=== PATIENT | female | born 1995 | race African-American/Black ===

== ENCOUNTER 2018-10-26 19:33 | Observation (INO) | payer MEDICAID ==
[~2018-10-26] VITALS: Ht 165.1 cm; Wt 75.3 kg
[2018-10-26] MEDS ORDERED: FOLI0.4T2 MT (20:22)
[2018-10-26] MEDS ORDERED: PREN1TAB78 MT (20:22)
[2018-10-26] MEDS ORDERED: ONDANSETRON HCL 4MG/2ML INJ IV NR (20:30)
[2018-10-26] MEDS ORDERED: ACETAMINOPHEN 325MG TABLET PO NR (20:30)
[2018-10-26] MEDS: LACTATED RINGERS 1,000 ML IV SCH ×2 (20:54→23:52)
[2018-10-26 21:21] LABS: BASOPHILS % 0.1 % (0.0-2.0); EOSINOPHILS % 0.6 % (0.0-5.0); HEMATOCRIT. 32.6 % (36.0-48.0); HEMOGLOBIN. 10.9 g/dL (12.0-16.0); MEAN CORPUSCULAR HEMOGLOBIN 28.9 pg (28.0-32.0); MEAN CORPUSCULAR VOLUME 86.4 fL (81.0-99.0); MEAN PLATELET VOLUME 9.1 fl (7.4-10.4); NEUTROPHILS % 74.3 % (40.0-76.0); PLATELET 208 x1000/uL (130-400); RED BLOOD CELL COUNT 3.77 mill/uL (4.2-5.4); RED CELL DISTRIBUTION WIDTH 15.1 % (11.6-14.6)
[2018-10-26 21:21] LABS: CLARITY URINE CLEAR (CLEAR); COLOR URINE YELLOW (YELLOW); KETONES URINE NEGATIVE (NEGATIVE); LEUKOCYTE ESTERASE URINE 1+ (NEGATIVE); NITRITE URINE NEGATIVE (NEGATIVE); OCCULT BLOOD URINE NEGATIVE (NEGATIVE); PH URINE 6.5 (4.5-8.0); PROTEIN URINE NEGATIVE (NEGATIVE); SPECIFIC GRAVITY URINE 1.008 (1.005-1.030); UROBILINOGEN URINE 0.2 E.U./dL (0.2-1.0)
[2018-10-26 21:25] LABS: CHLORIDE 107 mEq/L (98-107)
[2018-10-27] MEDS ORDERED: TERBUTALINE SULFATE 1MG/ML VIAL SUBCUT PRN (00:15)
== END 2018-10-27 01:50 | disposition home or self-care (01) ==
LOC: 8 EST LDRP 19:33
PROVIDERS: ADMIT Obstetrics & Gynecology; ATTEND Obstetrics & Gynecology
DX: O26.893 Other specified pregnancy related conditions, third trimester (principal); R10.2 Pelvic and perineal pain; M54.9 Dorsalgia, unspecified; O21.2 Late vomiting of pregnancy; R10.9 Unspecified abdominal pain; R42 Dizziness and giddiness; Z3A.34 34 weeks gestation of pregnancy
CPT/HCPCS: 36415; 80053; 81003; 85025; 96361; 96372; 96374; 99281; G0378; J2405; J3105; 96360; 96365

== ENCOUNTER 2023-12-21 17:51 | Emergency (ER) | payer MEDICAID, OTHER ==
[~2023-12-21] VITALS: Ht 165.1 cm; Wt 83.0 kg
[~2023-12-21 17:51] MED LIST: FOLI0.4T6 MT; IBUP-2029 MT; PREN1TAB78 MT
[2023-12-21 17:59] VITALS: BP 125/81; PULSE 78; RESP 18; TEMP 98.2; O2SAT 99
[2023-12-21] MEDS ORDERED: PENI500T MT (18:35)
== END 2023-12-21 18:44 | disposition home or self-care (01) ==
LOC: ER 17:51
DX: J03.90 Acute tonsillitis, unspecified (principal); J45.909 Unspecified asthma, uncomplicated
CPT/HCPCS: 99283

== ENCOUNTER 2024-08-02 02:55 | Emergency (ER) | payer OTHER ==
[~2024-08-02] VITALS: Ht 167.6 cm; Wt 84.2 kg
[~2024-08-02 02:55] MED LIST changes: +PENI500T MT
[2024-08-02 03:29] VITALS: O2SAT 100
[2024-08-02 04:03] LABS: BASOPHILS % 0.2 % (0.0-2.0); EOSINOPHILS % 1.4 % (0.0-5.0); HEMATOCRIT. 34.5 % (36.0-48.0); HEMOGLOBIN. 11.5 g/dL (12.0-16.0); LYMPHOCYTES % 21.7 % (20.0-50.0); MEAN CORPUSCULAR HEMOGLOBIN 28.5 pg (28.0-32.0); MEAN CORPUSCULAR HGB CONC 33.3 g/dL (31.0-37.0); MEAN CORPUSCULAR VOLUME 85.5 fL (81.0-99.0); MEAN PLATELET VOLUME 7.7 fl (7.4-10.4); NEUTROPHILS % 68.7 % (40.0-76.0); PLATELET 344 x1000/uL (130-400); RED BLOOD CELL COUNT 4.03 mill/uL (4.2-5.4); RED CELL DISTRIBUTION WIDTH 13.6 % (11.6-14.6); WHITE BLOOD COUNT 12.1 x1000/uL (4.5-11.0)
[2024-08-02] MEDS: ACETAMINOPHEN 500MG TABLET PO ONE (04:07)
[2024-08-02 04:11] LABS: CHLORIDE 105 mEq/L (98-107); SODIUM 137 mEq/L (136-145)
[2024-08-02 04:12] LABS: CALCIUM 9.5 mg/dL (8.7-10.4); CARBON DIOXIDE 26 mEq/L (21-32)
[2024-08-02 04:17] LABS: CREATININE 0.9 mg/dL (0.6-1.0); GLUCOSE 109 mg/dL (70-105); UREA NITROGEN BLOOD 6 mg/dL (9-23)
[2024-08-02 04:19] LABS: ALANINE AMINOTRANSFERASE 13 IU/L (10-49); ALBUMIN 4.1 g/dL (3.2-4.8); ASPARTATE AMINOTRANSFERASE 15 IU/L (<34); BILIRUBIN TOTAL 0.3 mg/dL (0.1-1.0); PROTEIN TOTAL 7.1 g/dL (6.0-8.3)
[2024-08-02 04:35] LABS: B-HCG QUANTITATIVE 37454 mIU/mL (<3)
[2024-08-02 05:06] LABS: CLARITY URINE TURBID (CLEAR); COLOR URINE ORANGE (YELLOW); GLUCOSE URINE NEGATIVE (NEGATIVE); KETONES URINE NEGATIVE (NEGATIVE); LEUKOCYTE ESTERASE URINE 2+ (NEGATIVE); NITRITE URINE NEGATIVE (NEGATIVE); OCCULT BLOOD URINE 3+ (NEGATIVE); PH URINE 5.5 (4.5-8.0); PROTEIN URINE 2+ (NEGATIVE); SPECIFIC GRAVITY URINE 1.016 (1.005-1.030)
[2024-08-02] MEDS ORDERED: NITR-87 MT (05:14)
[2024-08-02] MEDS ORDERED: TOPUD MT (05:14)
[2024-08-02 05:59] LABS: SQUAMOUS EPITHELIAL CELL URINE 2+ /lpf (RARE/1+)
[2024-08-02 06:00] LABS: WBC URINE 50-100 /hpf (0-2)
[2024-08-02 06:03] LABS: RBC URINE 15-25 /hpf (0-2)
[2024-08-02 06:06] LABS: BACTERIA URINE 1+
[2024-08-02 06:30] VITALS: BP 149/83; PULSE 88; RESP 20; TEMP 36.66960; O2SAT 100
== END 2024-08-02 06:30 | disposition home or self-care (01) ==
LOC: ER 02:55
DX: O20.0 Threatened abortion (principal); O23.41 Unspecified infection of urinary tract in pregnancy, first trimester; N39.0 Urinary tract infection, site not specified; Z3A.01 Less than 8 weeks gestation of pregnancy
CPT/HCPCS: 36415; 76801; 80053; 81003; 81025; 84702; 85025; 86850; 86900; 99284

== ENCOUNTER 2024-08-04 15:04 | Emergency (ER) | payer OTHER ==
[~2024-08-04] VITALS: Ht 167.6 cm; Wt 84.0 kg
[~2024-08-04 15:04] MED LIST changes: +NITR-87 MT; +TOPUD MT
[2024-08-04 15:25] VITALS: TEMP 98.3; O2SAT 100
[2024-08-04 19:52] VITALS: BP 139/71; PULSE 82; RESP 16; O2SAT 98
== END 2024-08-04 19:53 | disposition home or self-care (01) ==
LOC: ER 15:04
DX: O20.9 Hemorrhage in early pregnancy, unspecified (principal); Z98.890 Other specified postprocedural states; Z3A.01 Less than 8 weeks gestation of pregnancy
CPT/HCPCS: 36415; 76801; 84702; 99284

== ENCOUNTER 2024-08-06 09:14 | Emergency (ER) | payer OTHER ==
[~2024-08-06] VITALS: Ht 167.6 cm; Wt 84.0 kg
[2024-08-06 09:19] VITALS: BP 118/72; PULSE 87; RESP 18; TEMP 98.6; O2SAT 98; O2SAT 99
[2024-08-06] MEDS ORDERED: METHOTREXATE SODIUM/PF 50 MG/2 ML VIAL IM ONE (13:15)
[2024-08-06] MEDS ORDERED: IBUP-2029 PO (14:39)
[2024-08-06] MEDS: METHOTREXATE SODIUM/PF 50 MG/2 ML VIAL IM NR (14:39)
[2024-08-06] MEDS ORDERED: HYDR-4001 MT (14:39)
== END 2024-08-06 14:40 | disposition home or self-care (01) ==
LOC: ER 09:14
DX: O00.90 Unspecified ectopic pregnancy without intrauterine pregnancy (principal); O03.9 Complete or unspecified spontaneous abortion without complication; Z98.890 Other specified postprocedural states
CPT/HCPCS: 84702; 36415; 76801; 76817; 96372; 99285; J9260; Z7610

== ENCOUNTER 2024-08-20 23:59 | Emergency (ER) | payer OTHER ==
[~2024-08-20] VITALS: Ht 167.6 cm; Wt 85.0 kg
[~2024-08-20 23:59] MED LIST changes: +HYDR-4001 MT; +IBUP-2029 PO
[2024-08-21 00:18] VITALS: O2SAT 100
[2024-08-21] MEDS ORDERED: IBUP-2029 MT (00:45)
[2024-08-21] MEDS ORDERED: METH-653 MT (00:45)
[2024-08-21] MEDS: METHOCARBAMOL 500MG TABLET PO ONE (01:04)
[2024-08-21] MEDS: KETOROLAC 30MG/ML VIAL IM ONE (01:05)
[2024-08-21 01:39] VITALS: BP 124/68; PULSE 76; RESP 18; TEMP 36.83628; O2SAT 100
== END 2024-08-21 01:41 | disposition home or self-care (01) ==
LOC: ER 23:59
DX: S13.4XXA Sprain of ligaments of cervical spine, initial encounter (principal); S00.531A Contusion of lip, initial encounter; Z98.890 Other specified postprocedural states; V43.52XA Car driver injured in collision with other type car in traffic accident, initial encounter; Y93.89 Activity, other specified; Y92.410 Unspecified street and highway as the place of occurrence of the external cause; Y99.8 Other external cause status
CPT/HCPCS: 99283; 96372; J1885

== ENCOUNTER 2024-10-16 14:18 | Emergency (ER) | payer OTHER ==
[~2024-10-16] VITALS: Ht 165.1 cm; Wt 83.9 kg
[~2024-10-16 14:18] MED LIST changes: +METH-653 MT
[2024-10-16 14:21] VITALS: PULSE 87; RESP 16; TEMP 36.8; O2SAT 99
[2024-10-16 15:02] VITALS: BP 128/80
[2024-10-16 15:07] VITALS: TEMP 98.3
[2024-10-16] MEDS: ACETAMINOPHEN 325MG TABLET PO ONE (15:07)
[2024-10-16] MEDS: METOCLOPRAMIDE HCL 10MG TABLET PO ONE (15:07)
[2024-10-16 16:43] LABS: BASOPHILS % 0.4 % (0.0-2.0); EOSINOPHILS % 1.8 % (0.0-5.0); HEMATOCRIT. 38.5 % (36.0-48.0); HEMOGLOBIN. 12.4 g/dL (12.0-16.0); LYMPHOCYTES % 27.5 % (20.0-50.0); MEAN CORPUSCULAR HEMOGLOBIN 26.9 pg (28.0-32.0); MEAN CORPUSCULAR HGB CONC 32.1 g/dL (31.0-37.0); MEAN CORPUSCULAR VOLUME 83.7 fL (81.0-99.0); MEAN PLATELET VOLUME 8.4 fl (7.4-10.4); MONOCYTES % 7.8 % (2.0-8.0); NEUTROPHILS % 62.5 % (40.0-76.0); PLATELET 313 x1000/uL (130-400); WHITE BLOOD COUNT 8.9 x1000/uL (4.5-11.0)
[2024-10-16 16:45] LABS: CHLORIDE 107 mEq/L (98-107); SODIUM 140 mEq/L (136-145)
[2024-10-16 16:46] LABS: CARBON DIOXIDE 27 mEq/L (21-32)
[2024-10-16 16:47] LABS: CALCIUM 9.5 mg/dL (8.7-10.4)
[2024-10-16 16:48] LABS: HCG SCREEN POSITIVE
[2024-10-16 16:51] LABS: CREATININE 1.1 mg/dL (0.6-1.0); GLUCOSE 90 mg/dL (70-105)
[2024-10-16 16:52] LABS: B-HCG QUANTITATIVE 29 mIU/mL (<3); UREA NITROGEN BLOOD 13 mg/dL (9-23)
[2024-10-16 16:53] LABS: ALANINE AMINOTRANSFERASE 19 IU/L (10-49); ALBUMIN 4.4 g/dL (3.2-4.8); ASPARTATE AMINOTRANSFERASE 16 IU/L (<34)
[2024-10-16 16:54] LABS: BILIRUBIN TOTAL 0.5 mg/dL (0.1-1.0); PROTEIN TOTAL 7.6 g/dL (6.0-8.3)
== END 2024-10-16 17:10 | disposition home or self-care (01) ==
LOC: ER 14:18
DX: R10.2 Pelvic and perineal pain (principal); R79.89 Other specified abnormal findings of blood chemistry; Z32.01 Encounter for pregnancy test, result positive; Z79.899 Other long term (current) drug therapy; Z98.890 Other specified postprocedural states
CPT/HCPCS: 99284; 76830; 76856; 80053; 81025; 84703; 84702; 85025; 86850; 86900; 86901; 36415; J8597

== ENCOUNTER 2024-10-18 08:37 | Emergency (ER) | payer OTHER ==
[~2024-10-18] VITALS: Ht 167.6 cm; Wt 74.0 kg
[2024-10-18 08:45] VITALS: O2SAT 100
[2024-10-18 09:23] LABS: CLARITY URINE CLEAR (CLEAR); COLOR URINE YELLOW (YELLOW); GLUCOSE URINE NEGATIVE (NEGATIVE); KETONES URINE NEGATIVE (NEGATIVE); LEUKOCYTE ESTERASE URINE TRACE (NEGATIVE); NITRITE URINE NEGATIVE (NEGATIVE); OCCULT BLOOD URINE NEGATIVE (NEGATIVE); PH URINE 7.5 (4.5-8.0); PROTEIN URINE NEGATIVE (NEGATIVE); SPECIFIC GRAVITY URINE 1.015 (1.005-1.030)
[2024-10-18 09:31] LABS: BASOPHILS % 0.5 % (0.0-2.0); EOSINOPHILS % 1.5 % (0.0-5.0); HEMATOCRIT. 36.3 % (36.0-48.0); HEMOGLOBIN. 12.1 g/dL (12.0-16.0); LYMPHOCYTES % 23.5 % (20.0-50.0); MEAN CORPUSCULAR HEMOGLOBIN 27.7 pg (28.0-32.0); MEAN CORPUSCULAR HGB CONC 33.4 g/dL (31.0-37.0); MEAN CORPUSCULAR VOLUME 82.9 fL (81.0-99.0); MEAN PLATELET VOLUME 8.2 fl (7.4-10.4); MONOCYTES % 7.8 % (2.0-8.0); NEUTROPHILS % 66.7 % (40.0-76.0); PLATELET 300 x1000/uL (130-400); RED BLOOD CELL COUNT 4.38 mill/uL (4.2-5.4); RED CELL DISTRIBUTION WIDTH 13.9 % (11.6-14.6)
[2024-10-18 09:48] LABS: BACTERIA URINE TRACE; SQUAMOUS EPITHELIAL CELL URINE 3+ /lpf (RARE/1+)
[2024-10-18 09:51] LABS: RBC URINE 0-2 /hpf (0-2); WBC URINE 0-2 /hpf (0-2)
[2024-10-18 09:54] LABS: CHLORIDE 106 mEq/L (98-107); POTASSIUM 3.8 mEq/L (3.5-5.1); SODIUM 138 mEq/L (136-145)
[2024-10-18 09:55] LABS: CALCIUM 9.7 mg/dL (8.7-10.4); CARBON DIOXIDE 22 mEq/L (21-32)
[2024-10-18 10:00] LABS: GLUCOSE 99 mg/dL (70-105); UREA NITROGEN BLOOD 10 mg/dL (9-23)
[2024-10-18 10:01] LABS: B-HCG QUANTITATIVE 26 mIU/mL (<3)
[2024-10-18 10:02] LABS: ALANINE AMINOTRANSFERASE 34 IU/L (10-49); ALBUMIN 4.4 g/dL (3.2-4.8); ASPARTATE AMINOTRANSFERASE 24 IU/L (<34); BILIRUBIN TOTAL 0.8 mg/dL (0.1-1.0); PROTEIN TOTAL 7.4 g/dL (6.0-8.3)
[2024-10-18 10:45] VITALS: BP 117/77; PULSE 87; RESP 18; TEMP 37.1; O2SAT 100
== END 2024-10-18 11:08 | disposition home or self-care (01) ==
LOC: ER 08:37
DX: O99.119 Other diseases of the blood and blood-forming organs and certain disorders involving the immune mechanism complicating pregnancy, unspecified trimester (principal); Z98.890 Other specified postprocedural states; Z79.899 Other long term (current) drug therapy; N89.8 Other specified noninflammatory disorders of vagina; Z3A.00 Weeks of gestation of pregnancy not specified
CPT/HCPCS: 36415; 80053; 81003; 81025; 84702; 85025; 99283

== ENCOUNTER 2025-07-16 20:46 | Emergency (ER) | payer OTHER ==
[~2025-07-16] VITALS: Ht 165.1 cm; Wt 79.3 kg
[~2025-07-16 20:46] MED LIST changes: +IBUP-1455 MT; +IBUP-1455 PO; -IBUP-2029 MT; -IBUP-2029 PO
[2025-07-16 20:51] VITALS: TEMP 36.8; O2SAT 98
[2025-07-16 20:54] VITALS: BP 134/92; PULSE 92; RESP 12; TEMP 98.24; O2SAT 98
[2025-07-16 21:08] LABS: CLARITY URINE CLEAR (CLEAR); COLOR URINE YELLOW (YELLOW); GLUCOSE URINE NEGATIVE (NEGATIVE); KETONES URINE NEGATIVE (NEGATIVE); LEUKOCYTE ESTERASE URINE NEGATIVE (NEGATIVE); NITRITE URINE NEGATIVE (NEGATIVE); OCCULT BLOOD URINE NEGATIVE (NEGATIVE); PH URINE 5.5 (4.5-8.0); PROTEIN URINE NEGATIVE (NEGATIVE); SPECIFIC GRAVITY URINE 1.013 (1.005-1.030); UROBILINOGEN URINE 0.2 E.U./dL (0.2-1.0)
[2025-07-16 21:34] LABS: BASOPHILS % 0.5 % (0.0-2.0); EOSINOPHILS % 1.5 % (0.0-5.0); HEMATOCRIT. 36.4 % (36.0-48.0); HEMOGLOBIN. 12.0 g/dL (12.0-16.0); LYMPHOCYTES % 29.4 % (20.0-50.0); MEAN PLATELET VOLUME 8.3 fl (7.4-10.4); MONOCYTES % 7.4 % (2.0-8.0); NEUTROPHILS % 61.2 % (40.0-76.0); PLATELET 347 x1000/uL (130-400); RED BLOOD CELL COUNT 4.34 mill/uL (4.2-5.4); RED CELL DISTRIBUTION WIDTH 13.7 % (11.6-14.6)
[2025-07-16 21:45] LABS: CREATININE 1.0 mg/dL (0.6-1.0); UREA NITROGEN BLOOD 9 mg/dL (9-23)
[2025-07-16 21:46] LABS: B-HCG QUANTITATIVE 8 mIU/mL (<6)
[2025-07-16 22:56] LABS: HCG SCREEN INDETERMINATE
[2025-07-16] MEDS: ACETAMINOPHEN 325MG TABLET PO ONE (23:06)
== END 2025-07-17 01:10 | disposition home or self-care (01) ==
LOC: ER 20:46
DX: O99.611 Diseases of the digestive system complicating pregnancy, first trimester (principal); O26.891 Other specified pregnancy related conditions, first trimester; R10.21 Pelvic and perineal pain right side; Z79.3 Long term (current) use of hormonal contraceptives; Z79.899 Other long term (current) drug therapy; Z98.890 Other specified postprocedural states; Z3A.01 Less than 8 weeks gestation of pregnancy
CPT/HCPCS: 36415; 76830; 76856; 80048; 81003; 81025; 84702; 84703; 85025; 86850; 86900; 99284

== ENCOUNTER 2025-07-28 08:18 | Emergency (ER) | payer OTHER ==
[~2025-07-28] VITALS: Ht 162.6 cm; Wt 75.0 kg
[2025-07-28 08:21] VITALS: O2SAT 100
[2025-07-28 09:00] LABS: BASOPHILS % 0.6 % (0.0-2.0); EOSINOPHILS % 1.0 % (0.0-5.0); HEMATOCRIT. 35.0 % (36.0-48.0); HEMOGLOBIN. 11.6 g/dL (12.0-16.0); LYMPHOCYTES % 33.2 % (20.0-50.0); MEAN PLATELET VOLUME 8.1 fl (7.4-10.4); MONOCYTES % 8.3 % (2.0-8.0); NEUTROPHILS % 56.9 % (40.0-76.0); PLATELET 327 x1000/uL (130-400); RED BLOOD CELL COUNT 4.17 mill/uL (4.2-5.4); RED CELL DISTRIBUTION WIDTH 13.7 % (11.6-14.6)
[2025-07-28 09:20] LABS: CLARITY URINE CLEAR (CLEAR); COLOR URINE YELLOW (YELLOW); GLUCOSE URINE NEGATIVE (NEGATIVE); KETONES URINE NEGATIVE (NEGATIVE); LEUKOCYTE ESTERASE URINE 1+ (NEGATIVE); NITRITE URINE NEGATIVE (NEGATIVE); OCCULT BLOOD URINE 2+ (NEGATIVE); PH URINE 5.5 (4.5-8.0); PROTEIN URINE NEGATIVE (NEGATIVE); SPECIFIC GRAVITY URINE 1.017 (1.005-1.030); UROBILINOGEN URINE 1.0 E.U./dL (0.2-1.0)
[2025-07-28 09:28] LABS: CREATININE 1.0 mg/dL (0.6-1.0); UREA NITROGEN BLOOD 7 mg/dL (9-23)
[2025-07-28 09:58] LABS: SQUAMOUS EPITHELIAL CELL URINE 2+ /lpf (RARE/1+)
[2025-07-28 09:59] LABS: MUCUS URINE TRACE /lpf (< = 2+)
[2025-07-28 10:00] LABS: BACTERIA URINE TRACE
[2025-07-28 10:01] LABS: WBC URINE 0-2 /hpf (0-2)
[2025-07-28 12:16] VITALS: BP 121/69; PULSE 83; RESP 18; TEMP 37.1; O2SAT 98
== END 2025-07-28 12:17 | disposition home or self-care (01) ==
LOC: ER 08:18
DX: O26.891 Other specified pregnancy related conditions, first trimester (principal); N93.9 Abnormal uterine and vaginal bleeding, unspecified; Z3A.01 Less than 8 weeks gestation of pregnancy; Z79.899 Other long term (current) drug therapy
CPT/HCPCS: 36415; 76801; 80048; 81003; 81025; 84702; 85025; 86850; 86900; 99284